=== PATIENT | female | born 1965 | race Caucasian/White ===

== ENCOUNTER 2017-10-05 12:14 | Outpatient (CLI) | payer OTHER ==
[2017-10-05] MEDS ORDERED: IOPAMIDOL-300 100 ML VIAL ONE (12:28)
[2017-10-05] MEDS ORDERED: IOPAMIDOL-300 50 ML VIAL ONE (12:28)
[2017-10-05] MEDS ORDERED: IOPAMIDOL-300 100 ML VIAL IVP ONE (13:42)
[2017-10-05] MEDS ORDERED: IOPAMIDOL-300 50 ML VIAL PO ONE (13:42)
--- NOTE | 2017-10-05 13:49 | CT Report ---
CT OF THE ABDOMEN AND PELVIS WITH CONTRAST: 10/05/2017 CLINICAL INDICATION: Severe pelvic pain. TECHNIQUE: Axial CT images of the abdomen and pelvis were obtained with 100 mL Isovue 300 intravenously as well as oral contrast. No previous CT is available for comparison. FINDINGS: Limited evaluation of the lung bases is unremarkable. ABDOMEN: The liver demonstrates small cysts. No solid hepatic lesion or intrahepatic biliary dilatation is present. The spleen, pancreas, kidneys and adrenal glands are unremarkable. The gallbladder is not dilated. No bowel dilatation, free gas, or free fluid is present. No abdominal adenopathy is seen. PELVIS: The appendix is seen in the right lower quadrant, and is normal in caliber. A 1 cm follicle is noted in the left ovary. Otherwise, the pelvic organs appear unremarkable. A few scattered sigmoid diverticula are present, without CT evidence of diverticulitis. No adenopathy or free fluid is present. Osseous structures are unremarkable. IMPRESSION: NO EVIDENT ETIOLOGY FOR PATIENT'S SEVERE PELVIC PAIN. In accordance with CT protocol optimization, one or more of the following dose reduction techniques were utilized for this exam: automated exposure control, adjustment of mA and/or KV based on patient size, or use of iterative reconstructive technique. TD: 10/05/2017 13:47
== END 2017-10-05 12:15 | disposition home or self-care (01) ==
LOC: DI 12:14
PROVIDERS: ATTEND Internal Medicine
DX: R10.2 Pelvic and perineal pain (principal)
CPT/HCPCS: 74177; Q9967

== ENCOUNTER 2017-10-06 19:59 | Outpatient (CLI) | payer OTHER ==
--- NOTE | 2017-10-07 13:17 | Ultrasound Report ---
PELVIC ULTRASOUND: 10/06/2017 CLINICAL INDICATION: Pelvic pain. TECHNIQUE: Transabdominal pelvic ultrasound performed for global evaluation. Transvaginal pelvic ultrasound performed for detailed evaluation. Real-time scanning performed and static images obtained. FINDINGS: The uterus is anteverted, measuring 6.7 x 4.8 x 3.4 cm. The endometrial echo complex measures 6 mm. No focal myometrial lesion is present. The right ovary measures 4.1 x 2.2 x 1.6 cm, and appears unremarkable. The left ovary measures 2.9 x 2.8 x 2.1 cm, and demonstrates a follicle. No free fluid is present. IMPRESSION: NORMAL PELVIC ULTRASOUND. TD: 10/07/2017 13:16
== END 2017-10-06 20:00 | disposition home or self-care (01) ==
LOC: DI 19:59
PROVIDERS: ATTEND Internal Medicine
DX: R10.2 Pelvic and perineal pain (principal)
CPT/HCPCS: 76830; 76856

== ENCOUNTER 2020-10-13 09:21 | Outpatient (CLI) | payer OTHER ==
--- NOTE | 2020-10-14 12:30 | Mammography Report ---
BILATERAL DIGITAL SCREENING MAMMOGRAM 3D/2D: 10/13/2020 CLINICAL: Routine screening. Comparison is made to exam dated: 12/30/2015 mammogram - [facility]. There are sca ttered fibroglandular elements in both breasts. No significant masses, calcifications, or other findings are seen in either breast. There has been no significant interval change. IMPRESSION: NEGATIVE There is no mammographic evidence of malignancy. A 1 year screening mammogram is recommended. This exam was interpreted at Station ID: [id number]. NOTE: For mammograms, a report in lay terms will be sent to the patient. Approximately 15% of breast malignancies will not be visualized mammographically. In the management of a palpable breast mass, a negative mammogram must not discourage biopsy of a clinically suspicious lesion. Electronically Signed By: Farooq Hernandez M.D., jr/machelle:10/13/2020 10:02:08 ACR BI-RADS Category 1: Negative 3341F PARENCHYMAL PATTERN: (A) - The breast(s) demonstrate(s) scattered fibroglandular densities. BI-RADS CATEGORY: (1) - 1 RECOMMENDATION: (ANNUAL) - Recommend routine annual screening mammography. [id number] 1 year screening LATERALITY: (B)
== END 2020-10-13 09:22 | disposition home or self-care (01) ==
LOC: DI.N 09:21
PROVIDERS: ATTEND Internal Medicine
DX: Z12.31 Encounter for screening mammogram for malignant neoplasm of breast (principal)

== ENCOUNTER 2021-04-09 16:50 | Outpatient (CLI) | payer OTHER | END 2021-04-09 16:51 | disposition home or self-care (01) | LOC: LAB 16:50 | PROVIDERS: ATTEND Internal Medicine | DX: R60.9 Edema, unspecified (principal) | CPT/HCPCS: 36415; 85379 ==

== ENCOUNTER 2021-07-23 10:31 | Outpatient (CLI) | payer OTHER ==
--- NOTE | 2021-07-23 16:29 | XRAY Report ---
PROCEDURE: Shoulder 3 View LT INDICATIONS: UNSP DISLOCATION OF UNSP STERNOCLAVICULAR JOINT, I TECHNIQUE: 3 views of the shoulder were acquired. COMPARISON: None. FINDINGS: Mild to moderate acromioclavicular narrowing. Bones: No fractures or dislocations. No suspicious bony lesions. Visualized ribs appear intact. Soft tissues: No suspicious soft tissue calcifications. IMPRESSION: No visualized acute fracture or dislocation. However, occult injury cannot be excluded. Recommend short interval imaging follow-up in 7-10 days as clinically indicated for additional evalua tion. Reviewed by: Odette Olguin MD on 07/23/2021 4:28 PM PST Approved by: Odette Olguin MD on 07/23/2021 4:28 PM PST Station ID: [id number]
--- NOTE | 2021-07-23 16:55 | XRAY Report ---
PROCEDURE: Clavicle LT INDICATIONS: UNSP DISLOCATION OF UNSP STERNOCLAVICULAR JOINT, I TECHNIQUE: 2 views of the clavicle were acquired. COMPARISON: None. FINDINGS: Bones: No fractures or dislocations. Mild acromioclavicular joint osteoarthritic changes are seen. N o suspicious bony lesions. Soft tissues: No suspicious soft tissue calcifications. IMPRESSION: No clavicular fracture or dislocation. Mild acromioclavicular joint osteoarthritis. No suspicious bon y lesion. Reviewed by: Harlan Christian MD on 07/23/2021 4:54 PM PST Approved by: Harlan Christian MD on 07/23/2021 4:54 PM PST Station ID: [id number]
== END 2021-07-23 10:32 | disposition home or self-care (01) ==
LOC: DI 10:31
PROVIDERS: ATTEND Internal Medicine
DX: S43.206A Unspecified dislocation of unspecified sternoclavicular joint, initial encounter (principal); R07.81 Pleurodynia; M19.012 Primary osteoarthritis, left shoulder

== ENCOUNTER 2021-08-27 09:43 | Outpatient (CLI) | payer OTHER ==
[2021-08-27] MEDS ORDERED: IOPAMIDOL-300 50 ML VIAL ONE (10:00)
[2021-08-27] MEDS ORDERED: iohexoL-300 100 ML VIAL ONE (10:00)
[2021-08-27] MEDS ORDERED: iohexoL-300 100 ML VIAL IVP ONE (13:54)
[2021-08-27] MEDS ORDERED: IOPAMIDOL-300 50 ML VIAL PO ONE (13:56)
--- NOTE | 2021-08-27 14:00 | CT Report ---
PROCEDURE: Abdomen/Pelvis W INDICATIONS: MASS ON CHEST, PAIN IN CHEST, ABD PAIN CONTRAST: IV CONTRAST: Isovue 300 ml: 100 PO CONTRAST: Isovue 300 ml50 TECHNIQUE: After the administration of oral and intravenous contrast, 5 mm thick sections acquired from the diap hragms to the symphysis. 5 mm thick coronal and sagittal reformats were acquired. For radiation dos e reduction, the following was used: automated exposure control, adjustment of mA and/or kV accordin g to patient size. COMPARISON: October 05, 2017. FINDINGS: Inferior chest: No focal consolidation, pleural effusion, or pneumothorax. No cardiomegaly or perica rdial effusion. Gallbladder: The gallbladder is distended with a smooth thin wall. Biliary tree: No intra-or extrahepatic biliary ductal dilatation. Liver: The liver demonstrates normal enhancement, size, and contour. 1.6 cm hypoattenuating lesion i n the right hepatic lobe, which may reflect a cyst. Spleen: Normal enhancement, size and morphology is seen. Pancreas: No contour deforming mass or inflammatory change. Adrenals: Normal size without masses. Kidneys/ureters: Normal size and morphology. No solid masses or hydronephrosis. Vasculature: No evidence of aneurysm or other significant vascular pathology. Lymphatic system: No pathologic enlargement by size criteria. GI/mesentery: No evidence of intestinal obstruction. A few scattered colonic diverticuli are seen. No rmal appearance of the appendix. Peritoneum/Retroperitoneum: No free intraperitoneal gas or large collection. Urinary bladder: The urinary bladder is distended with a smooth thin wall. Pelvic organs: No significant abnormality. Bones/soft tissues: No significant abnormality. IMPRESSION: 1.No significant abnormality. Reviewed by: Tavon Weaver MD on 08/27/2021 1:59 PM [facility] Approved by: Tavon Weaver MD on 08/27/2021 1:59 PM PST Station ID: [id number]
--- NOTE | 2021-08-27 15:08 | CT Report ---
PROCEDURE: CHEST W INDICATIONS: Suspected left clavicular mass, PAIN IN CHEST, ABD PAIN CONTRAST: IV CONTRAST: Isovue 300 ml: 100 PO CONTRAST: Isovue 300 ml50 TECHNIQUE: After the administration of intravenous contrast, 1 mm axial images were acquired from the pulmonary apices through the posterior costophrenic angles. Axial 5 mm soft tissue kernel reconstructions were performed as well as 8 mm axial MIP and coronal and sagittal 5 mm reformations. For radiation dose reduction, the following was used: automated exposure control, adjustment of mA and/or kV according to patient size. COMPARISON: None. FINDINGS: CT CHEST: Thyroid: Coarse calcification in the right lobe of the thyroid. Vasculature: The thoracic aorta and arch vasculature have a normal contrasted appearance and are norm al size and contour. No evidence for dissection. Heart: No cardiomegaly or significant pericardial effusion. Mediastinum: No pathologic lymph node enlargement by size criteria. Lung/pleura: No pleural effusion, consolidation, or pneumothorax. Tracheobronchial tree: Patent. Upper abdomen: No significant abnormality. Bones: No significant abnormality. Chest wall: The chest wall and axilla are within normal limits. IMPRESSION: 1.No significant abnormality. Findings were discussed with the ordering provider at the time of dictation. Reviewed by: Tavon Weaver MD on 08/27/2021 3:07 PM PST Approved by: Tavon Weaver MD on 08/27/2021 3:07 PM PST Station ID: [id number]
== END 2021-08-27 09:44 | disposition home or self-care (01) ==
LOC: DI 09:43
PROVIDERS: ATTEND Internal Medicine
DX: R22.2 Localized swelling, mass and lump, trunk (principal); R07.89 Other chest pain; M25.519 Pain in unspecified shoulder
CPT/HCPCS: 71260; 74177; Q9967

== ENCOUNTER 2023-10-18 10:46 | Outpatient (CLI) | payer OTHER ==
--- NOTE | 2023-10-19 09:43 | Mammography Report ---
BILATERAL DIGITAL SCREENING MAMMOGRAM 3D/2D: 10/18/2023 CLINICAL: Routine screening. Family history of breast cancer. Comparison is made to exams dated: 10/13/2020 mammogram and 12/30/2015 mammogram - [facility]. Both breasts are heterogeneously dense, which may obscure small masses (category c / 51-75% glandular tissue). No significant masses, calcifications, or other findings are seen in either breast. There has been no significant interval change. IMPRESSION: NEGATIVE There is no mammographic evidence of malignancy. A 1 year screening mammogram is recommended. Based on Tyrer-Cuzick model (a risk assessment model), the patient's lifetime risk is 26.6% and her 1 0 year risk is 10.9%. If a patient has an elevated risk, a more comprehensive evaluation should be co nsidered and/or a referral to a genetic counselor. The [place] [employer], [place] [employer], and NCCN Guidelines advise the consideration of Breast MRI as an adjunct to screening mammo graphy in patients whose "Lifetime risk to develop breast cancer" is 20% or higher. This exam was interpreted at Station ID: [id number]. NOTE: For mammograms, a report in lay terms will be sent to the patient. Approximately 15% of breast malignancies will not be visualized mammographically. In the management of a palpable breast mass, a negative mammogram must not discourage biopsy of a clinically suspicious lesion. Electronically Signed By: Jc juan/machelle:10/18/2023 12:33:09 letter sent: No_Letter ACR BI-RADS Category 1: Negative 3341F PARENCHYMAL PATTERN: (D) - The breast(s) demonstrate(s) heterogeneously dense fibroglandular makayla solares. BI-RADS CATEGORY: (1) - 1 Mammogram [id number] 1 year screening LATERALITY: (B)
== END 2023-10-18 10:47 | disposition home or self-care (01) ==
LOC: DI.N 10:46
DX: Z12.31 Encounter for screening mammogram for malignant neoplasm of breast (principal); R92.333 Mammographic heterogeneous density, bilateral breasts; Z80.3 Family history of malignant neoplasm of breast